=== PATIENT | female | born 1995 | race Caucasian/White ===

== ENCOUNTER 2018-09-14 00:23 | Emergency (ER) | payer OTHER ==
[~2018-09-14] VITALS: Ht 165.1 cm; Wt 63.0 kg
[2018-09-14 00:24] VITALS: BP 97/67
[2018-09-14] MEDS ORDERED: LIDOCAINE-MPF 1%, 5ML ONE (01:21)
[2018-09-14] MEDS ORDERED: LIDOCAINE-MPF 1%, 5ML INFIL ONE (01:30)
== END 2018-09-14 03:02 | disposition home or self-care (01) ==
LOC: ED 02:41
DX: S01.81XA Laceration without foreign body of other part of head, initial encounter (principal); W19.XXXA Unspecified fall, initial encounter; Y93.89 Activity, other specified; Y92.488 Other paved roadways as the place of occurrence of the external cause; Y99.8 Other external cause status
CPT/HCPCS: 12011; 99283

== ENCOUNTER 2018-09-14 16:37 | Emergency (ER) | payer OTHER ==
[~2018-09-14] VITALS: Ht 165.1 cm; Wt 64.0 kg
[2018-09-14 16:39] VITALS: BP 95/58
--- NOTE | 2018-09-14 17:40 | NUR ---
TASK RN: DC EDUCATION PROVIDED, PT DEMONSTRATES UNDERSTANDING. PT AMBULATED STEADILY TO DC WITH RN AND FRIEND. FRIEND TO TRANSPORT PT HOME.
== END 2018-09-14 17:42 | disposition home or self-care (01) ==
LOC: ED 17:30
DX: S06.0X0A Concussion without loss of consciousness, initial encounter (principal); R42 Dizziness and giddiness; X58.XXXA Exposure to other specified factors, initial encounter; Y93.89 Activity, other specified; Y92.89 Other specified places as the place of occurrence of the external cause; Y99.8 Other external cause status
CPT/HCPCS: 70450; 99284